=== PATIENT | female | born 1990 | race Caucasian/White ===

== ENCOUNTER 2021-12-26 12:43 | Day surgery (SDC) | payer BC ==
[2021-12-25 08:30] VITALS: BMI 26.4
--- NOTE | 2021-12-26 11:24 | P.HPIHPCON ---
History of Present Illness H&P Date: 12/26/21 Chief Complaint: Left ureteral stone, bilateral renal stones This is a 31-year-old female with a 6 mm left-sided ureteral stone, she presented with sepsis and underwent a stent placement. She presents today for definitive stone management. Of note she also has bilateral nonobstructing stone. Discussed with her the option of a left-sided ureteroscopy with holmium laser, discussed also if the scope is able to be advanced into the kidney without dilation we'll address her right-sided stone. But did discussed with her the stones are fairly small and if the ureterostoscope does not passed easily then we will not address the stones at this time. Discussed the risks w hich includes but not limited to bleeding, infection, injury to the ureter, potential of sepsis. Discussed also risks of anesthesia. She understood all the risk and agreed to proceed with left-sided ureteroscopy with holmium laser, possible right-sided ureteroscopy with holmium laser Consent for Procedure: I have explained the operation/procedure to the patient, including the risks, benefits, side effects, alternative therapies (including not receiving the proposed treatment or service), the likelihood of the patient achieving his/her goals, and potential recuperation problems for the procedure/sedation/analgesia, as well as any blood products, if indicated. I also explained to the patient the risks, benefits and side effects of the alternatives, as well as the risks related to not receiving the proposed procedure, care, treatment, or services. Past Medical History Past Medical History: No Reported History Additional Past Medical History / Comment(s): Hx of and current kidney stones. History of Any Multi-Drug Resistant Organisms: None Reported Past Surgical History: Section Additional Past Surgical History / Comment(s): Section X3, wisdom teeth removed, stent for kidney stones, benign cyst removed from left breast. Past Anesthesia/Blood Transfusion Reactions: No Reported Reaction Past Psychological History: No Psychological Hx Reported Smoking Status: Never smoker Past Alcohol Use History: Occasional Past Drug Use History: None Reported - Past Family History Mother Family Medical History: No Reported History Medications and Allergies Home Medications Medication Instructions Recorded Confirmed Type Cephalexin [Keflex] 500 mg PO Q12HR 12/25/21 12/25/21 History Allergies Allergy/AdvReac Type Severity Reaction Status Date / Time No Known Allergies Allergy Verified 12/25/21 08:45 Surgical - Exam - General no distress, no pain - Eyes normal ocular movement, no pale - ENT normal nares, normal mucosa - Respiratory normal expansion, normal respiratory effort - Abdomen Abdomen: soft, non tender - Psychiatric oriented to time, oriented to person, oriented to place Assessment and Plan Assessment: OR for left-sided ureteroscopy with holmium laser, possible right-sided ureteroscopy with holmium laser
[~2021-12-26 12:43] MED LIST: DEXAMETHASONE SOD PHOSPHATE 4 MG/ML 1 ML VIAL IV ONE; GENTAMICIN 120 MG in SODIUM CHLORIDE 0.9% 100 ML IVPB PRN; HYDROmorphone 0.5 MG/0.5 ML SYRINGE IVP PRN; KETOROLAC 15 MG/ML 1 ML VIAL IVP SCH; LACTATED RINGERS 1,000 ML IV SCH; LIDOCAINE 1% (10MG/ML) FOR IV START INTRADERMA PRN; METOCLOPRAMIDE 5 MG/ML 2 ML VIAL IVP PRN; ONDANSETRON 4 MG/2 ML VIAL IVP ONE; SCOPOLAMINE 1 MG/72 HR PATCH TRANSDERM ONE
--- NOTE | 2021-12-26 13:21 | XR ---
EXAMINATION TYPE: XR KUB DATE OF EXAM: 12/26/2021 Comparison: Clinical History: 31-year-old female presurgical for Left Kidney Stone Findings: Left ureteral stent. Rounded calcification along the distal third stent within the left side of the p megan measuring 6 mm. Equivocal between a phlebolith and a distal ureteral calculus. Additional pelvi c lymph nodes are present. Bilateral tubal ligation clips. Nonobstructive bowel gas pattern. Possible 4 mm right renal calculus higher up in the abdomen. Mild to moderate stool in the right side of the abdomen. Impression: Left-sided ureteral stent. A 6 mm round calcification along the distal third stent could represent a phlebolith or a distal ureteral calculus. Additional pelvic phleboliths. Possible 4 mm right renal ca lculus.
[2021-12-26] MEDS ORDERED: MIDAZOLAM 2 MG/2 ML VIAL IV ONE (14:15)
[2021-12-26] MEDS ORDERED: LIDOCAINE 1% INJ 10MG/ML (20 ML MDV) ONE (14:40)
[2021-12-26] MEDS ORDERED: KETOROLAC 15 MG/ML 1 ML VIAL ONE (14:40)
[2021-12-26] MEDS ORDERED: PROPOFOL 10 MG/ML 20 ML VIAL IV ONE (14:40)
[2021-12-26] MEDS ORDERED: fentaNYL (PF) 50 MCG/ML 2 ML AMP ONE (14:40)
[2021-12-26 15:58] VITALS: TEMP 97.5
--- NOTE | 2021-12-26 16:08 | P.OP ---
Date of Procedure: 12/26/21 Preoperative Diagnosis: Left ureteral stone, bilateral renal stones Postoperative Diagnosis: Left ureteral and renal stones Procedure(s) Performed: Cystoscopy, left ureteroscopy, holmium laser lithotripsy, stone basketing and stent removal Implants: none Anesthesia: HARVEY Surgeon: Yefri Solis Estimated Blood Loss (ml): 5 Pathology: other (left ureteral stone) Disposition: PACU Indications for Procedure: This is a 31-year-old female with a 6 mm left-sided ureteral stone, she presented with sepsis and underwent a stent placement. She presents today for definitive stone management. Of note she also has bilateral nonobstructing stone. Discussed with her the option of a left-sided ureteroscopy with holmium laser, discussed also if the scope is able to be advanced into the kidney without dilation we'll address her right-sided stone. But did discussed with her the stones are fairly small and if the ureterostoscope does not passed easily then we will not address the stones at this time. Discussed the risks which includes but not limited to bleeding, infection, injury to the ureter, potential of sepsis. Discussed also risks of anesthesia. She understood all the risk and agreed to proceed with left-sided ureteroscopy with holmium laser, possible right-sided ureteroscopy with holmium laser Operative Findings: Left distal ureteral stone, multiple small stones throughout the left kidney Description of Procedure: Patient was brought to the operating room, general anesthesia was induced. She was prepped and draped in sterile fashion and placed in a dorsal lithotomy position. Cystoscopy fitted with a 22-Lebanese sheath was inserted per urethra, cystoscopy was performed which showed no abnormality within the bladder. Next using the stent grasper the stent was removed into the meatus. Next a sensor w dhruv was advanced through the stent the stent was removed with the wire in place. Next the semirigid ureteroscope was inserted and advanced along side the wire. Stone was encountered in the distal ureter. Using the holmium laser the stone was fragmented into small fragments, sizable fragments were removed using the stone basket. At this time the ureteroscope was advanced all the way up to the proximal ureter which showed no additional stones. Pullback ureteroscopy was performed showed no sizable fragments or injury to the ureter. Next a 1113 Lebanese access sheath was passed over the wire under fluoroscopy to the proximal ureter. Next the flexible ureteroscope was inserted through the access sheath, renoscopy was performed which showed multiple small stones or throughout the kidney. Using the holmium laser the stones were dusted into small particles, repeat renoscopy showed no sizable fragments or injury to the kidney. Pullback ureteroscopy was performed showed no injury to the ureter or ureteral fragments. At this time the cystoscope was reinserted and the right ureteral orifice was intubated with a sensor wire. Next a attempted to pass the flexible ureteroscope over the wire but resistance was met at the distal ureter. Given this finding decision was made not to go after the stones given that they're all were 3 mm or smaller. At this time the bladder was emptied, the patient tolerated the procedure was taken to recovery in stable condition. The stones were sent for analysis
--- NOTE | 2021-12-26 16:23 | FL ---
EXAMINATION TYPE: FL guidance operating room DATE OF EXAM: 12/26/2021 FLUOROSCOPY Fluoroscopy time of 10 seconds was used during left ureteroscopy with lithotripsy for stone. 0 image /s document/s the procedure.
[2021-12-26 16:42] VITALS: RESP 18
[2021-12-26 16:48] VITALS: PULSE 65
[2021-12-26 17:03] VITALS: BP 107/68
== END 2021-12-26 17:00 | disposition home or self-care (01) ==
LOC: OR 12:43
PROVIDERS: ATTEND Urology
DX: N20.1 Calculus of ureter (principal)
CPT/HCPCS: 52356; 81025; 82365; 74018; C1758; C1769; J2250; J1100; J0690; J2405; J2001; J3010; J1885; J2704